=== PATIENT | female | born 1990 | race African-American/Black ===

== ENCOUNTER 2017-10-22 10:46 | Emergency (ER) | payer OTHER ==
[2017-10-22 10:57] VITALS: BMI 29.1
[2017-10-22 11:37] LABS: BILIRUBIN,URINE NEGATIVE (NEGATIVE); BLOOD/HEMOGLOBIN,URINE NEGATIVE (NEGATIVE); GLUCOSE, URINE NEGATIVE (NEGATIVE); KETONES,URINE NEGATIVE (NEGATIVE); LEUKOCYTE ESTERASE ,URINE NEGATIVE (NEGATIVE); NITRITES,URINE NEGATIVE (NEGATIVE); PROTEIN,URINE NEGATIVE (NEGATIVE); UROBILINOGEN,URINE NORMAL (NORMAL)
--- NOTE | 2017-10-22 11:40 | DR.GENAD ---
HPI - PCP Primary Care Physician: Praveen - HPI Comment HPI Comment: NO VAGINAL BLEDING. NO DYSURIA. HISTORY LOW LAYING PLACENTA. NO FEVER. TOOK INFLUEZA IMMUNIZATION. NO URI SYMTOMS. - Complaint/Symptoms Chief Complaint Doctors Comments: NAUSEA, VOMITING TIMES 3 DAYS. LOWER ABDOMINAL PAIN TODAY. Chief Complaint:: "I have been thowing up consistantly for about 3 days now and my abdomen has been having sharp pains for more than 30 minutes." - Nurses notes reviewed Nurses Notes Review: Yes - Source History Provided: Patient - Mode of Arrival Mode of Arrival: Ambulatory - Timing Onset of Chief Complaint: 10/19/17 Came on: Suddenly - Duration Duration: Constant Duration: Days - Severity Severity: Moderate PMH - PMH Past Medical History: Yes Past Medical History: Asthma Past Medical History Comment: Kidney disease Past Surgical History: Yes Surgical History: Ortho Surgery Past Surgical History Comment: Left elbow - Family History History of Family Medical Conditions: Yes Family Medical History: Diabetes Mellitus, Cancer, Hypertension - Social History Does patient currently use any type of tobacco product: Yes Have you used tobacco products in the last 12 months: Yes Type of Tobacco Use: Cigarettes Does any household member use tobacco: Yes Alcohol Use: None Do you use any recreational Drugs:: No Lives With: Family Lives Where: Home - infectious screening In the last 2 months have you had wt loss of >10#?: NO Have you had fever, night sweats or hemotysis?: No Have you traveled outside the country in the last 6 months?: No Isolation: Standard ROS - Review of Systems Constitutional: Weakness, Fatigue. negative: Chills, Fever Eyes: No Symptoms Reported ENTM: No Symptoms Reported Respiratoy: No Symptoms Reported Cardiovascular: No Symptoms Reported Gastrointestinal/Abdominal: Abdominal Pain, Nausea, Vomiting Genitourinary: No Symptoms Reported Neurological: Weakness Musculoskeletal: No Symptoms Reported Integumentary: No Symptoms Reported Hematologic/Lymphatic: No Symptoms Reported Endocrine: No Symptoms Reported All Other Systems: Reviewed and Negative PE - Vital Signs Vitals: Temperature 98.3 F Pulse Rate 88 Respiratory Rate 18 Blood Pressure [Left Arm] 94/52 Blood Pressure 90/51 O2 Sat by Pulse Oximetry 99 - General Limitations: No Limitations General Appearance: Alert - Head Head Exam: Normal Inspection - Eyes Eye exam: Normal Appearance - ENT ENT Exam: Normal External Ear Exam External Ear Exam: Normal External Inspection TM/Canal Exam: Bilateral Normal Nose Exam: Normal Nose Exam Mouth Exam: Normal Inspection Throat Exam: Normal Inspection - Neck Neck Exam: Trachea Midline - Chest Chest Inspection: Symmetric Chest Wall Rise - Respiratory Respiratory Exam: Normal Lung Sounds Bilat Respiratory Exam: Bilateral Clear to Auscultation - Cardiovascular Cardiovascular Exam: Regular Rate, Normal Rhythm, Normal Heart Sounds - Abdominal Exam Abdominal Exam: Normal Bowel Sounds, Soft, Tenderness Abdominal Tenderness: LUQ, Moderate - Extremities Extremities Exam: Normal Inspection. negative: Edema - Back Back Exam: Normal Inspection - Neurologic Neurological Exam: Alert, Oriented X3 - Psychiatric Psychiatric Exam: Normal Affect, Normal Mood - Skin Skin Exam: Normal Color MDM - Additional Information Additional Information Obtained From: Family - Differential Diagnosis Differential Diagnosis: ABDOMINAL PAIN DURING , UTI, BACK PAIN Course - Treatment Treatment: SEE ORDERS. - Consultation Consultation Comments: [facility] PATIENT TO SEE HIM SCHEDUE ON THIS THURSDAY. DR. CHAU OB SUGAR BOILER AWAREOF PATIENT. SHE WILL GO HOME ON BED REST AND FOLLOW UP WITH HER OB. - Education/Counseling Education/Counseling: Patient, Education Educated On: Diagnosis, Needs for Follow Up ROR - Labs Reviewed Laboratory Results Reviewed?: Yes Result Diagrams: 10/22/17 12:21 10/22/17 12:21 Laboratory: WBC 9.5 X10^3/uL (3.6-10.0) 10/22/17 12:21 RBC 3.63 X10^6/uL (3.5-5.4) 10/22/17 12:21 Hgb 11.2 g/dL (12.0-16.0) L 10/22/17 12:21 Hct 32.3 % (36.0-47.0) L 10/22/17 12:21 MCV 89.1 fL (80.0-100.0) 10/22/17 12:21 MCH 30.9 pg (27.0-34.0) 10/22/17 12:21 MCHC 34.7 g/dL (33.0-35.0) 10/22/17 12:21 RDW 13.8 % (11.6-16.5) 10/22/17 12:21 Plt Count 202 X10^3/uL (150.0-450.0) 10/22/17 12:21 MPV 8.9 fL (7.4-11.0) 10/22/17 12: Neut % 68.7 % (42.0-75.0) 10/22/17 12: Lymph % 23.7 % (21.0-51.0) 10/22/17 12:21 [place] % 5.2 % (0.0-13.0) 10/22/17 12:21 Eos % 1.9 % (0.9-2.9) 10/22/17 12:21 Baso % 0.5 % (0.2-1.0) 10/22/17 12:21 Neut # 6.6 x10^3/uL (2.2-4.8) H 10/22/17 12:21 Lymph # 2.3 X10^3/uL (1.3-2.9) 10/22/17 12:21 [place] # 0.5 x10^3/uL (0.3-0.8) 10/22/17 12:21 Eos # 0.2 x10^3/uL (0.0-0.2) 10/22/17 12:21 Baso # 0.0 X10^3/uL (0.0-0.1) 10/22/17 12:21 Absolute Nucleated RBC 0.0 /100WBC 10/22/17 12:21 Sodium 136 mmol/L (136-145) 10/22/17 12:21 Corrected Sodium TNP 10/22/17 12:21 Potassium 3.8 mmol/L (3.5-5.1) 10/22/17 12:21 Chloride 104 mmol/L (98-107) 10/22/17 12:21 Carbon Dioxide 25.8 mmol/L (21-32) 10/22/17 12:21 BUN 8 mg/dL (7-18) 10/22/17 12:21 Creatinine 0.43 mg/dL (0.55-1.02) L 10/22/17 12:21 Est GFR (MDRD) Af Amer > 60 (>60) 10/22/17 12:21 Est GFR (MDRD) Non-Af > 60 (>60) 10/22/17 12:21 Glucose 76 mg/dL (65-99) 10/22/17 12:21 Calcium 8.6 mg/dL (8.5-10.1) 10/22/17 12:21 Corrected Calcium 9.6 mg/dL (8.5-10.1) 10/22/17 12:21 Total Bilirubin 0.20 mg/dL (0.2-1.0) 10/22/17 12:21 AST 9 Units/L (15-37) L 10/22/17 12:21 ALT 11 Units/L (12-78) L 10/22/17 12:21 Alkaline Phosphatase 44 Units/L (46-116) L 10/22/17 12:21 Total Protein 6.6 g/dL (6.4-8.2) 10/22/17 12:21 Albumin 2.8 g/dL (3.4-5.0) L 10/22/17 12:21 Globulin 3.8 g/dL (2.5-4.5) 10/22/17 12:21 Albumin/Globulin Ratio 0.7 Ratio (1.1-2.1) L 10/22/17 12:21 HCG, Quant 30534 mIU/mL (0-6) H 10/22/17 12:21 Specimen Type Clean catch urine 10/22/17 11:30 Urine Color Yellow (YELLOW) 10/22/17 11:30 Urine Appearance Clear (CLEAR) 10/22/17 11:30 Urine pH 8.0 (5.0 - 8.0) 10/22/17 11:30 Ur Specific [place] 1.015 (1.000-1.030) 10/22/17 11:30 Urine Protein Negative (NEGATIVE) 10/22/17 11:30 Urine Glucose (UA) Negative (NEGATIVE) 10/22/17 11:30 Urine Ketones Negative (NEGATIVE) 10/22/17 11:30 Urine Occult Blood Negative (NEGATIVE) 10/22/17 11:30 Urine Nitrite Negative (NEGATIVE) 10/22/17 11:30 Urine Bilirubin Negative (NEGATIVE) 10/22/17 11:30 Urine Urobilinogen Normal (NORMAL) 10/22/17 11:30 Ur Leukocyte Esterase Negative (NEGATIVE) 10/22/17 11:30 Urine RBC 0-1 /HPF (NONE SEEN) 10/22/17 11:30 Urine WBC 0-1 /HPF (NONE SEEN) 10/22/17 11:30 Ur Squamous Epith Cells Few /HPF (NEGATIVE) 10/22/17 11:30 Urine Bacteria Negative /HPF (NEGATIVE) 10/22/17 11:30 Urine Mucus Rare /HPF (NEGATIVE) 10/22/17 11:30 Ur Culture Indicated? No/not indicated 10/22/17 11:30 - XRAY XRAY Interpreted by: Radiologist XRAY Findings: REPORT DISCUSS WITH PATIENT. - Diagnosis Discharge Problem: Abdominal pain affecting Placenta previa Qualifiers: Trimester: second trimester Qualified Code(s): O44.02 - Complete placenta previa NOS or without hemorrhage, second trimester - Discharge Plan Disposition: HOME, SELF-CARE Condition: Stable Prescriptions: Ondansetron HCl [Zofran Tab 4 mg] 4 mg PO Q8H PRN #12 tab PRN Reason: Nausea/Vomiting - Follow ups/Referrals Follow ups/Referrals: EUGENE GARCÍA [Primary Care Provider] - 3 days - Instructions Instructions: Abdominal Pain During , [id number], Nausea and Vomiting, Adult, [id number], Pelvic Rest, Placenta Previa Additional Instructions: RETURN TO TO ED IF WORSE.
[2017-10-22 11:43] LABS: APPEARANCE,URINE CLEAR (CLEAR); BACTERIA,URINE NEGATIVE /HPF (NEGATIVE); COLOR,URINE YELLOW (YELLOW); RBC,URINE 0-1 /HPF (NONE SEEN); SQUAMOUS EPITHELIAL CELL,UR FEW /HPF (NEGATIVE)
[2017-10-22 11:44] LABS: MUCUS,URINE RARE /HPF (NEGATIVE)
[2017-10-22] MEDS ORDERED: NS 1000 ML 1,000 ML ONE (12:06)
[2017-10-22] MEDS ORDERED: NS 1000 ML 1,000 ML IV ONE (12:08)
[2017-10-22] MEDS ORDERED: ZOFRAN INJ 4 MG VIAL IVP ONE (12:08)
[2017-10-22] MEDS ORDERED: ZOFRAN INJ 4 MG VIAL ONE (12:09)
[2017-10-22 12:32] LABS: BASOPHILS % (AUTO) 0.5 % (0.2-1.0); EOSINOPHILS # (AUTO) 0.2 x10^3/uL (0.0-0.2); EOSINOPHILS % (AUTO) 1.9 % (0.9-2.9); HEMATOCRIT 32.3 % (36.0-47.0); HEMOGLOBIN 11.2 g/dL (12.0-16.0); LYMPHOCYTES # (AUTO) 2.3 X10^3/uL (1.3-2.9); LYMPHOCYTES % (AUTO) 23.7 % (21.0-51.0); MEAN CORPUSCULAR HEMOGLOBIN 30.9 pg (27.0-34.0); MEAN CORPUSCULAR HGB CONC 34.7 g/dL (33.0-35.0); MEAN CORPUSCULAR VOLUME 89.1 fL (80.0-100.0); MEAN PLATELET VOLUME 8.9 fL (7.4-11.0); MONOCYTES # (AUTO) 0.5 x10^3/uL (0.3-0.8); MONOCYTES % (AUTO) 5.2 % (0.0-13.0); NEUTROPHILS # (AUTO) 6.6 x10^3/uL (2.2-4.8); NEUTROPHILS % (AUTO) 68.7 % (42.0-75.0); PLATELET COUNT 202 X10^3/uL (150.0-450.0); RED BLOOD COUNT 3.63 X10^6/uL (3.5-5.4); RED CELL DISTRIBUTION WIDTH 13.8 % (11.6-16.5); WHITE BLOOD COUNT 9.5 X10^3/uL (3.6-10.0)
[2017-10-22 12:42] LABS: ALANINE AMINOTRANSFERASE 11 Units/L (12-78); ALBUMIN 2.8 g/dL (3.4-5.0); ALKALINE PHOSPHATASE 44 Units/L (46-116); ASPARTATE AMINO TRANSFERASE 9 Units/L (15-37); BLOOD UREA NITROGEN 8 mg/dL (7-18); CALCIUM 8.6 mg/dL (8.5-10.1); CARBON DIOXIDE 25.8 mmol/L (21-32); CHLORIDE 104 mmol/L (98-107); COR CA(FOR HYPOALB) 9.6 mg/dL (8.5-10.1); CREATININE 0.43 mg/dL (0.55-1.02); SODIUM 136 mmol/L (136-145); TOTAL PROTEIN 6.6 g/dL (6.4-8.2); eGFR BLACK RACES > 60 (>60); eGFR NON BLACK RACES > 60 (>60)
[2017-10-22 13:10] LABS: HCG,QUANTITATIVE 12494 mIU/mL (0-6)
--- NOTE | 2017-10-22 13:38 | US ---
HISTORY: Lower abdominal/pelvic pain. Study: OB ultrasound greater than 14 weeks Comparison: None. Technique: Multiple grayscale and color flow Doppler images of the pelvis were obtained with focused evaluation of the fetus. Findings: A viable single intrauterine is identified with heart tones of 140 beats per minute. A cephalic presentation is observed with an anterior and fundal placenta. Normal amniotic fluid vol ume is observed. Evaluation of the anatomy including the stomach, urinary bladder, and four-andrea mber heart are unremarkable. The extremities and spine are normal in their sonographic appearance. A three-vessel cord is observed. No intracranial abnormality can be identified. The kidneys were not well seen. Marginal placenta previa. Value Estimated Gestational Age BPD 5.34 cm 22 weeks 2 days HC 19.2 cm 21 weeks 3 days AC 16.2 cm 21 weeks 2 days FL 4.15 cm 23 weeks 2 days IMPRESSION: 1. A viable single intrauterine with an average ultrasound age of 22 weeks 5 days correspon d to an estimated date of delivery of February 20, 2018. 2. No anatomical abnormalities can be identified. 3. Marginal placenta previa. Reported By:
[2017-10-22 14:11] VITALS: BP 94/52
== END 2017-10-22 14:37 | disposition home or self-care (01) ==
LOC: ER 11:04
DX: R10.84 Generalized abdominal pain (principal); O44.02 Complete placenta previa NOS or without hemorrhage, second trimester; Z3A.22 22 weeks gestation of pregnancy
CPT/HCPCS: 36415; 76815; 80053; 81001; 84702; 85025; 96365; 96374; 99284; A4222; J2405

== ENCOUNTER 2017-10-28 23:23 | Emergency (ER) | payer OTHER ==
[2017-10-28 23:33] VITALS: BP 115/54; BMI 29.1
--- NOTE | 2017-10-28 23:48 | DR.GENAD ---
HPI - PCP Primary Care Physician: curtis - HPI Comment HPI Comment: HISTORY BELOW. PATIENT SAID SHE HAS HISTORY OF PLACENTA PREVVIA. - Complaint/Symptoms Chief Complaint Doctors Comments: PATIENT IS 24 WEEKS . HAD ABDOMINAL PAIN SEVERAL DAYS AGO. US WAS NORMAL. TONIGHT, THE PAIN STARTED AGAIN IN LOWER ABDOMEN. NO DYSURIA, FEVER OR VAGINAL BLEEDING.PAIN IS GETTING WORSE SO PATIENT CALL EMS AND CAME TO ED. Chief Complaint:: pt 23 weeks ob c/o abd pain denies bleeding - Nurses notes reviewed Nurses Notes Review: Yes - Source History Provided: Patient - Mode of Arrival Mode of Arrival: EMS - Timing Onset of Chief Complaint: 10/28/17 Came on: Suddenly - Duration Duration: Constant Duration: Hours - Severity Severity: Moderate PMH - PMH Past Medical History: Yes Past Medical History: Asthma Past Surgical History: Yes Surgical History: Ortho Surgery Past Surgical History Comment: lt elbow - Family History History of Family Medical Conditions: Yes Family Medical History: Diabetes Mellitus, Cancer, Hypertension - Social History Type of Tobacco Use: Cigarettes Does any household member use tobacco: Yes Alcohol Use: None Do you use any recreational Drugs:: No Lives With: Family Lives Where: Home - infectious screening In the last 2 months have you had wt loss of >10#?: NO Have you had fever, night sweats or hemotysis?: No Have you traveled outside the country in the last 6 months?: No Isolation: Standard ROS - Review of Systems Constitutional: No Symptoms Reported Eyes: No Symptoms Reported ENTM: No Symptoms Reported Respiratoy: No Symptoms Reported Cardiovascular: No Symptoms Reported Gastrointestinal/Abdominal: Abdominal Pain Genitourinary: No Symptoms Reported Neurological: No Symptoms Reported Musculoskeletal: No Symptoms Reported Integumentary: No Symptoms Reported Hematologic/Lymphatic: No Symptoms Reported Endocrine: No Symptoms Reported All Other Systems: Reviewed and Negative PE - Vital Signs Vitals: Temperature 98 F Pulse Rate 78 Respiratory Rate 18 Blood Pressure [Left Arm] 94/52 Blood Pressure 115/54 O2 Sat by Pulse Oximetry 100 - General Limitations: No Limitations General Appearance: Alert - Head Head Exam: Normal Inspection - Eyes Eye exam: Normal Appearance - ENT ENT Exam: Normal External Ear Exam External Ear Exam: Normal External Inspection TM/Canal Exam: Bilateral Normal Nose Exam: Normal Nose Exam Mouth Exam: Normal Inspection Throat Exam: Normal Inspection - Neck Neck Exam: Trachea Midline - Chest Chest Inspection: Symmetric Chest Wall Rise - Respiratory Respiratory Exam: Normal Lung Sounds Bilat Respiratory Exam: Bilateral Clear to Auscultation - Cardiovascular Cardiovascular Exam: Regular Rate, Normal Rhythm, Normal Heart Sounds - Abdominal Exam Abdominal Exam: Normal Bowel Sounds, Soft, Tenderness Abdominal Tenderness: RLQ, LLQ, Suprapubic - Extremities Extremities Exam: Normal Inspection - Back Back Exam: Normal Inspection - Neurologic Neurological Exam: Alert, Oriented X3, CN II-XII Intact. negative: Motor Sensory Deficit - Psychiatric Psychiatric Exam: Anxious - Skin Skin Exam: Normal Color MDM - Differential Diagnosis Differential Diagnosis: ABDOMINAL PAIN IN 2ND TRIMESTED , THREATENED MISCARRIAGE. Course - Treatment Treatment: SEE ORDERS. TYLENOL, 1GM PO INED. PATIENT ADVICE TO GO TO [facility] FOR [facility]. SHE SIGN AMA. - Reevaluation 1st: Improved (PAIN IMPROVED.) - Education/Counseling Education/Counseling: Patient, Education Educated On: Diagnosis, Needs for Follow Up ROR - Labs Reviewed Laboratory Results Reviewed?: Yes Result Diagrams: 10/29/17 00:15 10/29/17 00:15 Laboratory: WBC 10.4 X10^3/uL (3.6-10.0) H 10/29/17 00:15 RBC 3.47 X10^6/uL (3.5-5.4) L 10/29/17 00:15 Hgb 10.8 g/dL (12.0-16.0) L 10/29/17 00:15 Hct 31.6 % (36.0-47.0) L 10/29/17 00:15 MCV 91.0 fL (80.0-100.0) 10/29/17 00:15 MCH 31.0 pg (27.0-34.0) 10/29/17 00:15 MCHC 34.1 g/dL (33.0-35.0) 10/29/17 00:15 RDW 14.4 % (11.6-16.5) 10/29/17 00:15 Plt Count 222 X10^3/uL (150.0-450.0) 10/29/17 00:15 MPV 9.0 fL (7.4-11.0) 10/29/17 00:15 Neut % 61.9 % (42.0-75.0) 10/29/17 00:15 Lymph % 27.6 % (21.0-51.0) 10/29/17 00:15 [place] % 8.2 % (0.0-13.0) 10/29/17 00:15 Eos % 1.9 % (0.9-2.9) 10/29/17 00:15 Baso % 0.4 % (0.2-1.0) 10/29/17 00:15 Neut # 6.5 x10^3/uL (2.2-4.8) H 10/29/17 00:15 Lymph # 2.9 X10^3/uL (1.3-2.9) 10/29/17 00:15 [place] # 0.8 x10^3/uL (0.3-0.8) 10/29/17 00:15 Eos # 0.2 x10^3/uL (0.0-0.2) 10/29/17 00:15 Baso # 0.0 X10^3/uL (0.0-0.1) 10/29/17 00:15 Absolute Nucleated RBC 0.0 /100WBC 10/29/17 00:15 Sodium 132 mmol/L (136-145) L 10/29/17 00:15 Corrected Sodium TNP 10/29/17 00:15 Potassium 4.0 mmol/L (3.5-5.1) 10/29/17 00:15 Chloride 102 mmol/L (98-107) 10/29/17 00:15 Carbon Dioxide 26.9 mmol/L (21-32) 10/29/17 00:15 BUN 12 mg/dL (7-18) 10/29/17 00:15 Creatinine 0.45 mg/dL (0.55-1.02) L 10/29/17 00:15 Est GFR (MDRD) Af Amer > 60 (>60) 10/29/17 00:15 Est GFR (MDRD) Non-Af > 60 (>60) 10/29/17 00:15 Glucose 82 mg/dL (65-99) 10/29/17 00:15 Calcium 9.0 mg/dL (8.5-10.1) 10/29/17 00:15 Corrected Calcium 10.0 mg/dL (8.5-10.1) 10/29/17 00:15 Total Bilirubin 0.20 mg/dL (0.2-1.0) 10/29/17 00:15 AST 9 Units/L (15-37) L 10/29/17 00:15 ALT 7 Units/L (12-78) L 10/29/17 00:15 Alkaline Phosphatase 46 Units/L (46-116) 10/29/17 00:15 Total Protein 6.7 g/dL (6.4-8.2) 10/29/17 00:15 Albumin 2.8 g/dL (3.4-5.0) L 10/29/17 00:15 Globulin 3.9 g/dL (2.5-4.5) 10/29/17 00:15 Albumin/Globulin Ratio 0.7 Ratio (1.1-2.1) L 10/29/17 00:15 HCG, Quant 89000 mIU/mL (0-6) H 10/29/17 00:15 Specimen Type Clean catch urine 10/29/17 00:07 Urine Color Yellow (YELLOW) 10/29/17 00:07 Urine Appearance Clear (CLEAR) 10/29/17 00:07 Urine pH 7.0 (5.0 - 8.0) 10/29/17 00:07 Ur Specific [place] 1.005 (1.000-1.030) 10/29/17 00:07 Urine Protein Negative (NEGATIVE) 10/29/17 00:07 Urine Glucose (UA) Negative (NEGATIVE) 10/29/17 00:07 Urine Ketones Negative (NEGATIVE) 10/29/17 00:07 Urine Occult Blood Negative (NEGATIVE) 10/29/17 00:07 Urine Nitrite Negative (NEGATIVE) 10/29/17 00:07 Urine Bilirubin Negative (NEGATIVE) 10/29/17 00:07 Urine Urobilinogen Normal (NORMAL) 10/29/17 00:07 Ur Leukocyte Esterase Negative (NEGATIVE) 10/29/17 00:07 Urine RBC 0-3 /HPF (NONE SEEN) 10/29/17 00:07 Urine WBC 0-3 /HPF (NONE SEEN) 10/29/17 00:07 Ur Squamous Epith Cells Rare /HPF (NEGATIVE) 10/29/17 00:07 Urine Bacteria Negative /HPF (NEGATIVE) 10/29/17 00:07 Ur Culture Indicated? No/not indicated 10/29/17 00:07 - XRAY XRAY Interpreted by: Radiologist XRAY Findings: REPORTDISCUSS WITH PATIENT. - Diagnosis Discharge Problem: Abdominal pain affecting Placenta previa Qualifiers: Trimester: second trimester Qualified Code(s): O44.02 - Complete placenta previa NOS or without hemorrhage, second trimester - Discharge Plan Disposition: 07 AGAINST MEDICAL ADVICE Condition: Stable - Follow ups/Referrals Follow ups/Referrals: NFD,None [Primary Care Provider] - 3 days - Instructions
[2017-10-29] MEDS ORDERED: TYLENOL 500 MG TAB EXTRA STRENGTH PO ONE ×2 (00:13→00:41)
[2017-10-29 00:38] LABS: BASOPHILS % (AUTO) 0.4 % (0.2-1.0); EOSINOPHILS # (AUTO) 0.2 x10^3/uL (0.0-0.2); EOSINOPHILS % (AUTO) 1.9 % (0.9-2.9); HEMATOCRIT 31.6 % (36.0-47.0); HEMOGLOBIN 10.8 g/dL (12.0-16.0); LYMPHOCYTES # (AUTO) 2.9 X10^3/uL (1.3-2.9); LYMPHOCYTES % (AUTO) 27.6 % (21.0-51.0); MEAN CORPUSCULAR HGB CONC 34.1 g/dL (33.0-35.0); MONOCYTES # (AUTO) 0.8 x10^3/uL (0.3-0.8); MONOCYTES % (AUTO) 8.2 % (0.0-13.0); NEUTROPHILS # (AUTO) 6.5 x10^3/uL (2.2-4.8); NEUTROPHILS % (AUTO) 61.9 % (42.0-75.0); PLATELET COUNT 222 X10^3/uL (150.0-450.0); RED BLOOD COUNT 3.47 X10^6/uL (3.5-5.4); RED CELL DISTRIBUTION WIDTH 14.4 % (11.6-16.5); WHITE BLOOD COUNT 10.4 X10^3/uL (3.6-10.0)
[2017-10-29 00:44] LABS: ALANINE AMINOTRANSFERASE 7 Units/L (12-78); ALBUMIN 2.8 g/dL (3.4-5.0); ALKALINE PHOSPHATASE 46 Units/L (46-116); ASPARTATE AMINO TRANSFERASE 9 Units/L (15-37); BLOOD UREA NITROGEN 12 mg/dL (7-18); CARBON DIOXIDE 26.9 mmol/L (21-32); CHLORIDE 102 mmol/L (98-107); CREATININE 0.45 mg/dL (0.55-1.02); SODIUM 132 mmol/L (136-145); TOTAL PROTEIN 6.7 g/dL (6.4-8.2); eGFR BLACK RACES > 60 (>60); eGFR NON BLACK RACES > 60 (>60)
[2017-10-29 01:04] LABS: BILIRUBIN,URINE NEGATIVE (NEGATIVE); BLOOD/HEMOGLOBIN,URINE NEGATIVE (NEGATIVE); GLUCOSE, URINE NEGATIVE (NEGATIVE); KETONES,URINE NEGATIVE (NEGATIVE); LEUKOCYTE ESTERASE ,URINE NEGATIVE (NEGATIVE); NITRITES,URINE NEGATIVE (NEGATIVE); PROTEIN,URINE NEGATIVE (NEGATIVE); UROBILINOGEN,URINE NORMAL (NORMAL)
[2017-10-29 01:05] LABS: APPEARANCE,URINE CLEAR (CLEAR); BACTERIA,URINE NEGATIVE /HPF (NEGATIVE); COLOR,URINE YELLOW (YELLOW); RBC,URINE 0-3 /HPF (NONE SEEN); SQUAMOUS EPITHELIAL CELL,UR RARE /HPF (NEGATIVE)
[2017-10-29 01:11] LABS: HCG,QUANTITATIVE 10604 mIU/mL (0-6)
--- NOTE | 2017-10-29 02:22 | US ---
Obstetric ultrasound Indication: patient with epigastric pain Comparison: 10/22/2017 Technique: Sonographic images of the pelvis were obtained with focused evaluation of the fetus per pr otocol. Findings: A viable single intrauterine is identified with heart tones of 142 beats per minute. A cephalic presentation is observed with a posterior and fundal placenta; previa was not demonstrated on the current study. A grossly normal amniotic fluid volume is observed, although RADHA was not calcu lated. Evaluation of the anatomy including the stomach, spine, urinary bladder, and four-chambe r heart are unremarkable. A three vessel cord with normal insertion is observed. Value Estimated Gestational Age BPD 5.63 cm 23 weeks, 1 day HC 20.95 cm 23 weeks, 0 days AC 20.17 cm 24 weeks, 6 days FL 4.64 cm 25 weeks, 3 days Estimated weight is 732 g (70th percentile). IMPRESSION: A viable single intrauterine with an average ultrasound age of 24 weeks, 1 day correspond t o an estimated date of delivery of 02/17/2018. No acute abnormalities can be identified. Reported By:
== END 2017-10-29 02:41 | disposition left against medical advice (07) ==
LOC: ER 23:23
DX: R10.84 Generalized abdominal pain (principal); O44.02 Complete placenta previa NOS or without hemorrhage, second trimester; Z3A.24 24 weeks gestation of pregnancy
CPT/HCPCS: 36415; 76815; 80053; 81001; 84702; 85025; 99284

== ENCOUNTER 2017-11-14 21:58 | Emergency (ER) | payer OTHER ==
[2017-11-14 22:09] VITALS: BP 108/57; BMI 30.6
--- NOTE | 2017-11-14 23:14 | DR.GENAD ---
HPI - PCP Primary Care Physician: - Complaint/Symptoms Chief Complaint Doctors Comments: Patient presents with complaint of vomiting and can not keep anything down. She states that she is 26 weeks LMP ; she is a single .She is going to deliver in [place] secondary to being high risk and has placenta previa. She is a 2-3 cigarettes /day down from 1ppd Chief Complaint:: HAS BEEN VOMITING SINCE 0800 AND SAYS THAT SHE CAN'T KEEP ANYTHING DOWN. STATES THAT SHE VOMITED 7X TODAY. Self Treatment fo Chief Complaint: TOOK PERCOCET AND ZOFRAN THAT WAS PRESCRIBED BY HER MD - Source History Provided: Patient - Mode of Arrival Mode of Arrival: Ambulatory - Timing Onset of Chief Complaint: 11/14/17 PMH - PMH Past Medical History: Yes Past Medical History: Asthma Past Medical History Comment: PRE HTN Past Surgical History: Yes Surgical History: Ortho Surgery - Family History History of Family Medical Conditions: Yes Family Medical History: Diabetes Mellitus, Hypertension - Social History Does patient currently use any type of tobacco product: Yes Have you used tobacco products in the last 12 months: Yes Type of Tobacco Use: Cigarettes Does any household member use tobacco: No Alcohol Use: None Do you use any recreational Drugs:: No Lives With: Spouse Lives Where: Home - infectious screening In the last 2 months have you had wt loss of >10#?: NO Have you traveled outside the country in the last 6 months?: No Isolation: Standard ROS - Review of Systems Eyes: No Symptoms Reported ENTM: No Symptoms Reported Respiratoy: No Symptoms Reported Cardiovascular: No Symptoms Reported Gastrointestinal/Abdominal: No Symptoms Reported Genitourinary: No Symptoms Reported Neurological: No Symptoms Reported Musculoskeletal: No Symptoms Reported Integumentary: No Symptoms Reported Hematologic/Lymphatic: No Symptoms Reported Endocrine: No Symptoms Reported Psychiatric: No Symptoms Reported All Other Systems: Reviewed and Negative PE - Vital Signs Vitals: Temperature 99.8 F Pulse Rate 105 Respiratory Rate 20 Blood Pressure [Left Arm] 94/52 Blood Pressure 108/57 O2 Sat by Pulse Oximetry 97 - General Limitations: No Limitations General Appearance: Alert, In No Apparent Distress - Head Head Exam: Normal Inspection, Atraumatic - Eyes Eye exam: Normal Appearance, PERRL, EOMI - ENT ENT Exam: Normal Exam External Ear Exam: Normal External Inspection TM/Canal Exam: Bilateral Normal Nose Exam: Normal Nose Exam Mouth Exam: Normal Inspection Throat Exam: Normal Inspection - Neck Neck Exam: Normal Inspection, Full ROM - Chest Chest Inspection: Normal Inspection, Symmetric Chest Wall Rise - Respiratory Respiratory Exam: Normal Lung Sounds Bilat Respiratory Exam: Bilateral Clear to Auscultation - Cardiovascular Cardiovascular Exam: Regular Rate, Normal Rhythm - Abdominal Exam Abdominal Exam: Normal Inspection Abdominal Tenderness: Other (twenty six weeks ) - Extremities Extremities Exam: Normal Inspection. negative: Edema - Back Back Exam: Normal Inspection, Full ROM - Neurologic Neurological Exam: Alert, Oriented X3, CN II-XII Intact - Psychiatric Psychiatric Exam: Normal Affect, Normal Mood - Skin Skin Exam: Warm, Dry, Intact Course - Treatment Treatment: Denies nausea s/p infusion of NS;zofran - Reevaluation 1st: Improved - Education/Counseling Educated On: Treatment, Diagnosis, Prognosis, Needs for Follow Up ROR - Labs Reviewed Result Diagrams: 11/15/17 00:50 Laboratory: Specimen Type Clean catch urine 11/14/17 22:52 Urine Color Yellow (YELLOW) 11/14/17 22:52 Urine Appearance Clear (CLEAR) 11/14/17 22:52 Urine pH 6.0 (5.0 - 8.0) 11/14/17 22:52 Ur Specific [place] 1.020 (1.000-1.030) 11/14/17 22:52 Urine Protein 1+ (NEGATIVE) 11/14/17 22:52 Urine Glucose (UA) Negative (NEGATIVE) 11/14/17 22:52 Urine Ketones 4+ (NEGATIVE) 11/14/17 22:52 Urine Occult Blood 1+ (NEGATIVE) 11/14/17 22:52 Urine Nitrite Negative (NEGATIVE) 11/14/17 22:52 Urine Bilirubin Negative (NEGATIVE) 11/14/17 22:52 Urine Urobilinogen 1+ (NORMAL) 11/14/17 22:52 Ur Leukocyte Esterase Negative (NEGATIVE) 11/14/17 22:52 Urine RBC Rare /HPF (NONE SEEN) 11/14/17 22:52 Urine WBC None seen /HPF (NONE SEEN) 11/14/17 22:52 Ur Squamous Epith Cells Few /HPF (NEGATIVE) 11/14/17 22:52 Urine Bacteria Negative /HPF (NEGATIVE) 11/14/17 22:52 Urine Mucus Many /HPF (NEGATIVE) 11/14/17 22:52 Ur Culture Indicated? No/not indicated 11/14/17 22:52 - Diagnosis Discharge Problem: Vomiting affecting Vomiting alone Qualifiers: Vomiting type: unspecified Vomiting Intractability: non-intractable Qualified Code(s): R11.11 - Vomiting without nausea - Discharge Plan Condition: Stable - Follow ups/Referrals Follow ups/Referrals: DUNG CHAU [Primary Care Provider] - 3 days - Instructions
[2017-11-14] MEDS ORDERED: ZOFRAN INJ 4 MG VIAL IVP ONE (23:24)
[2017-11-14] MEDS ORDERED: NS 1000 ML 1,000 ML IV ONE (23:24)
[2017-11-14 23:31] LABS: BILIRUBIN,URINE NEGATIVE (NEGATIVE); BLOOD/HEMOGLOBIN,URINE 1+ (NEGATIVE); GLUCOSE, URINE NEGATIVE (NEGATIVE); KETONES,URINE 4+ (NEGATIVE); LEUKOCYTE ESTERASE ,URINE NEGATIVE (NEGATIVE); NITRITES,URINE NEGATIVE (NEGATIVE); PROTEIN,URINE 1+ (NEGATIVE); UROBILINOGEN,URINE 1+ (NORMAL)
[2017-11-14] MEDS ORDERED: NS 1000 ML 1,000 ML ONE (23:37)
[2017-11-14] MEDS ORDERED: ZOFRAN INJ 4 MG VIAL ONE (23:37)
[2017-11-14 23:41] LABS: APPEARANCE,URINE CLEAR (CLEAR); COLOR,URINE YELLOW (YELLOW); RBC,URINE RARE /HPF (NONE SEEN)
[2017-11-14 23:42] LABS: BACTERIA,URINE NEGATIVE /HPF (NEGATIVE); MUCUS,URINE MANY /HPF (NEGATIVE); SQUAMOUS EPITHELIAL CELL,UR FEW /HPF (NEGATIVE)
[2017-11-15 01:35] LABS: BLOOD UREA NITROGEN 9 mg/dL (7-18); CALCIUM 7.3 mg/dL (8.5-10.1); CARBON DIOXIDE 22.6 mmol/L (21-32); CHLORIDE 105 mmol/L (98-107); CREATININE 0.49 mg/dL (0.55-1.02); SODIUM 138 mmol/L (136-145); eGFR BLACK RACES > 60 (>60); eGFR NON BLACK RACES > 60 (>60)
== END 2017-11-15 01:15 | disposition home or self-care (01) ==
LOC: ER 21:58
DX: R11.11 Vomiting without nausea (principal)
CPT/HCPCS: 36415; 80048; 81001; 96365; 96374; 99282; 99283; J2405

== ENCOUNTER 2018-02-10 05:57 | Inpatient (IN) ==
[~2018-02-10 05:57] MED LIST: D5 NS IV ONE
[2018-02-10] MEDS ORDERED: PITOCIN ONE (06:26)
[2018-02-10] MEDS ORDERED: FENTANYL INJ 100 mcg ONE (06:26)
[2018-02-10] MEDS ORDERED: D5LR 1L W PITOCIN 10 UNITS/L 10 UNITS/1,000 ML BAG IV ONE (06:26)
[2018-02-10] MEDS ORDERED: LR 1000 ML IV 1,000 ML IV ONE ×2 (06:26→09:56)
[2018-02-10] MEDS ORDERED: D5 1/2 NS 1L W PITOCIN 20 UNITS/L 20 UNITS/1,000 ML BAG IV ONE ×2 (06:27→21:47)
[2018-02-10] MEDS ORDERED: NAROPIN EPIDURAL 0.2% + FENTANYL 90MCG 60 ML EPI ONE (06:27)
[2018-02-10] MEDS ORDERED: D5 1/2 NS 1000 ML 1,000 ML IV ONE (06:27)
[2018-02-10] MEDS ORDERED: PHENERGAN INJ 25 MG IV PRN ×2 (06:29→11:11)
[2018-02-10] MEDS ORDERED: PITOCIN IVP ONE (06:29)
[2018-02-10] MEDS ORDERED: NUBAIN INJ 200 MG VIAL MULTIDOSE IVP PRN (06:29)
[2018-02-10] MEDS ORDERED: D5LR 1L W PITOCIN 10 UNITS/L 10 UNITS/1,000 ML BAG IV PRN (06:29)
[2018-02-10] MEDS ORDERED: D5 1/2 NS 1000 ML 1,000 ML IV SCH (06:29)
[2018-02-10] MEDS ORDERED: MORPHINE SULFATE INJ 2 MG INJ IVP PRN (06:29)
[2018-02-10] MEDS ORDERED: REGLAN INJ 10 MG VIAL IVP PRN (06:29)
--- NOTE | 2018-02-10 06:48 | DR.OB ---
OB Quick Note - Assessment/Plan Assessment/Plan: L&D 02/10/18 at 6:35am S-No complaint. Reports SROM at 5:45am with clear fluid. O-Afebrile,VSS QYA=046 with good LTV, +accel, no decel. CTX=q 3-4 min., mod. by palpation CVX=3cm/75%/0/VTX SROM with clear fluid. IUPC and FSE placed. A-IUP at 38 5/7 weeks for with SROM Polyhydramnios Chronic low back pain asthma GERD anemia P-Begin pitocin augmentation as needed. Anticipate
[2018-02-10] MEDS ORDERED: XYLOCAINE 1 % (PLAIN) ONE (06:55)
[2018-02-10] MEDS ORDERED: NAROPIN EPIDURAL 0.2% 97 ML with FENTANYL INJ 250 mcg 150 MCG EPI ONE ×2 (07:00)
[2018-02-10] MEDS ORDERED: PHENERGAN INJ 25 MG ONE (10:05)
[2018-02-10] MEDS ORDERED: MILK OF MAGNESIA PO PRN (12:34)
[2018-02-10] MEDS ORDERED: DERMOPLAST SPRAY TOP PRN (12:34)
[2018-02-10] MEDS ORDERED: ADACEL or BOOSTRIX TDaP VACCINE IM ONE (12:34)
[2018-02-10] MEDS ORDERED: PROVENTIL NEB TX 0.083% 2.5MG/ 3ML NEB PRN (12:34)
[2018-02-10] MEDS ORDERED: PERCOCET TAB 5/325 MG PO PRN (12:34)
[2018-02-10] MEDS ORDERED: AMBIEN PO PRN (12:34)
--- NOTE | 2018-02-10 13:29 | DR.OB ---
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 Head delivered over intact perineum. No nuchal cord. Nose and mouth bulb suctioned. Body delivered over intact perineum. Cord clamped x 2 and cut. Infant handed to attendant. Cord sent for gases. Placenta delivered spontaneously / intact / 3 vessel cord. No CVX / vaginal / perineal tears. Viable female infant, VTX/OA, wt=6'8" and 8/8, stable to NBN. Mother stable to RR. WPF=335ms.
[2018-02-10] MEDS ORDERED: BENADRYL INJ 50 MG VIAL IVP ONE (13:42)
[2018-02-10] MEDS: D5 1/2 NS 1000 ML 1,000 ML with PITOCIN 20 UNITS IV SCH ×4 (14:30→22:19)
[2018-02-10] MEDS: MOTRIN TAB 800 MG PO PRN (17:29)
[2018-02-10] MEDS: ZANTAC PO SCH (22:18)
[2018-02-11] MEDS: D5 1/2 NS 1000 ML 1,000 ML with PITOCIN 20 UNITS IV SCH ×4 (05:22→12:09)
[2018-02-11 05:23] LABS: HEMATOCRIT 28.4 % (36.0-47.0)
[2018-02-11] MEDS ORDERED: PRENATAL PLUS PO SCH (09:00)
[2018-02-11] MEDS: ZANTAC PO SCH (09:23)
[2018-02-11] MEDS ORDERED: ADACEL or BOOSTRIX TDaP VACCINE IM ONE (13:00)
[2018-02-11] MEDS: MOTRIN TAB 800 MG PO PRN (13:06)
[2018-02-11 13:51] VITALS: BP 125/68
== END 2018-02-11 13:00 | disposition home or self-care (01) | DRG 775 ==
LOC: LD 05:57 → MED/SURG 12:34
PROVIDERS: ADMIT Specialist; ATTEND Specialist
DX: Z3A.38 38 weeks gestation of pregnancy; O26.893 Other specified pregnancy related conditions, third trimester; O99.613 Diseases of the digestive system complicating pregnancy, third trimester; D50.8 Other iron deficiency anemias; Z37.0 Single live birth; Z01.818 Encounter for other preprocedural examination; O99.013 Anemia complicating pregnancy, third trimester; O40.3XX0 Polyhydramnios, third trimester, not applicable or unspecified; Z23 Encounter for immunization
CPT/HCPCS: 36415; 59409; 80048; 80053; 80307; 81001; 84112; 85014; 85018; 85025; 86592; 86850; 86900; 86901; 90715; 99282; 99284; A4222; S0197; G0434; J1200; J2550; J2590; J3010; J7042; J7120; S5010